=== PATIENT | male | born 1975 | race Caucasian/White ===

== ENCOUNTER 2019-05-05 10:10 | Outpatient (CLI) | payer OTHER ==
--- NOTE | 2019-05-05 17:41 | RAD ---
LEFT GREAT TOE: 05/05/19 A slightly comminuted fracture of the distal phalanx of the great toe is seen. The DIP joint does not appear definitely involved. There is no dislocation. IMPRESSION: Distal phalanx fracture. POS: HOME
== END 2019-05-05 10:11 | disposition home or self-care (01) ==
LOC: BURRAD 10:10
PROVIDERS: ATTEND Physician Assistant
DX: S99.922A Unspecified injury of left foot, initial encounter (principal); S92.912A Unspecified fracture of left toe(s), initial encounter for closed fracture

== ENCOUNTER 2021-11-01 18:39 | Emergency (ER) | payer OTHER ==
[2021-11-01] MEDS ORDERED: Metoprolol Tartrate 5 MG/5 ML VIAL ONE ×2 (19:05→20:37)
[2021-11-01] MEDS ORDERED: Aspirin Chewable 81 MG TAB ONE (19:05)
[2021-11-01] MEDS ORDERED: Nitroglycerin 0.4 MG TAB 1 EACH ONE (19:05)
[2021-11-01 19:17] LABS: #Basophils 0.1 thou/uL (0.0-0.2); #Eosinphils 0.1 thou/uL (0.0-0.7); #Lymphocytes 2.2 thou/uL (1.20-3.40); #Monocytes 0.7 thou/uL (0.11-0.59); #Neutrophils 5.5 thou/uL (1.40-6.50); %Basophils 1.4 % (0.0-1.0); %Eosinophils 0.8 % (0.0-10.0); %Lymphocytes 25.5 % (21.0-51.0); %Monocytes 7.9 % (0.0-10.0); %Neutrophils 64.5 % (42.0-75.0); Large Platelets SLIGHT; MDiff Complete? YES; Mean Corpuscular HGB CONC 33.8 g/dL (32.0-36.0); Mean Corpuscular Hemoglobin 32.3 pg (27.0-31.0); Mean Corpuscular Volume 95.6 fL (78.0-98.0); Mean Platelet Volume 15.6 fL (7.4-10.4); Platelet Count 96 thou/uL (130-400); Platelet Morphology Comment Appears Decreased; RBC Distribution Width 11.9 % (11.5-14.5); RBC Morphology No PLATELET CLUMPING SEEN; Red Blood Cell (RBC) Count 4.93 mill/uL (4.70-6.10); White Blood Cell (WBC) Count 8.6 thou/uL (4.8-10.8)
[2021-11-01 19:25] LABS: ALT (SGPT) 34 U/L (8-55); AST (SGOT) 27 U/L (5-34); Albumin 4.6 g/dL (3.5-5.0); Alkaline Phosphatase 74 U/L (40-110); Anion Gap 16 mmol/L (10-20); BUN (Urea Nitrogen) 13 mg/dL (8.9-20.6); Bilirubin, Total 0.5 mg/dL (0.2-1.2); Calc. Creatinine Clearance 0 mL/min (70-130); Calcium 9.3 mg/dL (7.8-10.44); Carbon Dioxide 24 mmol/L (22-29); Chloride 103 mmol/L (98-107); Globulin 2.9 g/dL (2.4-3.5); Glucose 103 mg/dL (70-105); Lipase 30 U/L (8-78); Potassium 3.1 mmol/L (3.5-5.1); Protein, Total 7.5 g/dL (6.0-8.3); Sodium 140 mmol/L (136-145)
[2021-11-01] MEDS ORDERED: Enoxaparin Sodium 100 MG/ML SYRINGE ONE (20:24)
== END 2021-11-01 22:00 | disposition short-term general hospital (02) ==
LOC: BURERS 18:39
DX: I20.0 Unstable angina (principal); I10 Essential (primary) hypertension; F17.220 Nicotine dependence, chewing tobacco, uncomplicated
CPT/HCPCS: 36415; 71045; 80053; 83690; 84484; 85025; 93005; 94760; 96372; 96374; 96376; J1650